=== PATIENT | male | born 1965 | race Caucasian/White ===

== ENCOUNTER 2024-07-12 13:49 | Emergency (ER) | payer BC, OTHER ==
[~2024-07-12] VITALS: Ht 180.3 cm; Wt 84.8 kg
[2024-07-12 13:53] VITALS: O2SAT 99
[2024-07-12] MEDS ORDERED: NEOMY/BACITRA/POLYMYXIN B OINT UD PACKET TP ONE ×2 (14:00→14:01)
[2024-07-12] MEDS ORDERED: LIDOCAINE HCL 2% 20 ML VIAL ONE (14:04)
[2024-07-12] MEDS: LIDOCAINE HCL 2% 20 ML VIAL TP ONE (14:14)
[2024-07-12] MEDS: TDAP DIPH,PERTUSS,TET VAC/PF 0.5 ML DISP.SYRIN IM ONE (14:15)
== END 2024-07-12 15:01 | disposition home or self-care (01) ==
LOC: ER 13:49
DX: S61.210A Laceration without foreign body of right index finger without damage to nail, initial encounter (principal); X58.XXXA Exposure to other specified factors, initial encounter; Y93.89 Activity, other specified; Y92.89 Other specified places as the place of occurrence of the external cause; Y99.8 Other external cause status
CPT/HCPCS: 12001; 99282; J3490; A4606; A4663

== ENCOUNTER 2024-07-26 14:29 | Emergency (ER) | payer BC ==
[~2024-07-26] VITALS: Ht 180.3 cm; Wt 84.4 kg
[2024-07-26 14:39] VITALS: O2SAT 99
== END 2024-07-26 15:25 | disposition home or self-care (01) ==
LOC: ER 14:29
DX: S61.210D Laceration without foreign body of right index finger without damage to nail, subsequent encounter (principal); X58.XXXD Exposure to other specified factors, subsequent encounter
CPT/HCPCS: A4606; A4663